=== PATIENT | female | born 1985 | race African-American/Black ===

== ENCOUNTER 2018-06-25 00:29 | Emergency (ER) | payer OTHER ==
[~2018-06-25] VITALS: Ht 175.3 cm; Wt 137.0 kg
[~2018-06-25 00:29] MED LIST: ACET325T53 PO
[2018-06-25 00:38] VITALS: BP_SYST 155
[2018-06-25] MEDS ORDERED: IPRATROPIUM/ALBUTEROL SULFATE 3 ML AMPUL.NEB (DUONEB) INH ONE (01:00)
[2018-06-25 01:20] LABS: HEMATOCRIT 35.4 % (36-48); HEMOGLOBIN 11.5 g/dL (12.0-16.0); RED BLOOD CELL COUNT(AUTO) 4.26 MIL/uL (4.2-6.2); WHITE BLOOD COUNT (AUTO) 5.9 K/uL (4.8-10.8)
[2018-06-25 01:21] LABS: BASOPHILS % (AUTO) 0.8 % (0.0-2.0); EOSINOPHILS # (AUTO) 0.2 K/uL (0.0-0.4); EOSINOPHILS % (AUTO) 3.5 % (0.0-4.0); LYMPHOCYTES # (AUTO) 2.2 K/uL (1.0-5.5); LYMPHOCYTES % (AUTO) 36.5 % (20.5-51.5); MEAN CORPUSCULAR HEMOGLOBIN 27 pg (27-31); MEAN CORPUSCULAR HGB CONC 32 % (32-36); MEAN CORPUSCULAR VOLUME 83 fL (79.0-98.0); MONOCYTES # (AUTO) 0.5 K/uL (0.0-1.0); MONOCYTES % (AUTO) 8.5 % (1.7-9.3); NEUTROPHILS % (AUTO) 50.7 % (40.0-70.0); PLATELET COUNT (AUTO) 283 K/uL (130-430); RED CELL DISTRIBUTION WIDTH 15.4 % (9.0-15.0)
[2018-06-25 01:28] LABS: CALCIUM 8.7 mg/dL (8.4-11.0); CREATININE 1.1 mg/dL (0.55-1.30); POTASSIUM 3.7 mmol/L (3.5-5.1)
[2018-06-25 01:35] LABS: ALBUMIN 3.7 g/dL (3.4-4.8); TOTAL BILIRUBIN 0.2 mg/dL (0.0-1.0)
[2018-06-25 02:41] VITALS: BP_SYST 135
== END 2018-06-25 02:41 | disposition home or self-care (01) ==
LOC: SED 00:29
DX: J20.9 Acute bronchitis, unspecified (principal); H92.01 Otalgia, right ear; I10 Essential (primary) hypertension; Z86.79 Personal history of other diseases of the circulatory system
CPT/HCPCS: 36415; 71045; 80053; 83880; 84484; 85025; 85379; 85610; 93005; 94640; 99284; J7620

== ENCOUNTER 2018-10-06 15:27 | Emergency (ER) | payer OTHER ==
[~2018-10-06] VITALS: Ht 175.3 cm; Wt 147.4 kg
[2018-10-06 15:50] VITALS: BP_SYST 153
[2018-10-06] MEDS ORDERED: KETOROLAC TROMETHAMINE 30 MG VIAL IM ONE (16:15)
[2018-10-06] MEDS ORDERED: KETOROLAC TROMETHAMINE 60 MG/2 ML VIAL IM ONE (16:15)
[2018-10-06 17:50] VITALS: BP_SYST 148
== END 2018-10-06 17:49 | disposition home or self-care (01) ==
LOC: SED 15:27
DX: M54.5 Low back pain (principal); I10 Essential (primary) hypertension; Z86.79 Personal history of other diseases of the circulatory system
CPT/HCPCS: 96372; 99283; J1885

== ENCOUNTER 2019-02-12 19:39 | Emergency (ER) | payer OTHER ==
[~2019-02-12] VITALS: Ht 175.3 cm; Wt 139.7 kg
[2019-02-12 19:45] VITALS: BP_SYST 130
--- NOTE | 2019-02-12 20:00 | NUR ---
Patient to ER bed 7 to gown for evaluation. Side rails up.
--- NOTE | 2019-02-12 20:03 | NUR ---
ER at bedside examining patient.
--- NOTE | 2019-02-12 20:10 | NUR ---
Pt came to the ED with SOB with cough. Reports that she was seen in the emergency room for cough for 3 days which has been going on for 5 days. Reported that she was taken for azithromycin, tytlenol and albuterol. Reports L side pain with cough. Reported she vomited once. Denies fever and nausea. No other complaints/injuries noted. Will cont. to monitor.
[2019-02-12] MEDS ORDERED: ONDANSETRON HCL 4 MG/2 ML VIAL IVP ONE (20:15)
[2019-02-12] MEDS ORDERED: NACL 0.9% 1,000 ML IV ONE (20:15)
[2019-02-12] MEDS ORDERED: ALBUTEROL SULFATE 0.083% 2.5 MG/3 ML VIAL.NEB INH ONE (20:15)
[2019-02-12] MEDS ORDERED: MORPHINE 2 MG/ML INJ. SYRINGE IVP ONE (20:15)
--- NOTE | 2019-02-12 20:20 | NUR ---
Girish caruso in ED - 02/12/19 at 2028 by [email or web address] COLTON Alan at bedside examining patient.
--- NOTE | 2019-02-12 21:00 | NUR ---
Pt resting comfortably in bed, no signs of acute distress. WIll cont. to monitor.
[2019-02-12 21:05] LABS: BASOPHILS # (AUTO) 0.1 K/uL (0.0-0.2); BASOPHILS % (AUTO) 0.8 % (0.0-2.0); EOSINOPHILS # (AUTO) 0.2 K/uL (0.0-0.4); EOSINOPHILS % (AUTO) 2.3 % (0.0-4.0); HEMATOCRIT 36.3 % (36-48); LYMPHOCYTES # (AUTO) 2.7 K/uL (1.0-5.5); LYMPHOCYTES % (AUTO) 37.5 % (20.5-51.5); MEAN CORPUSCULAR HEMOGLOBIN 27 pg (27-31); MEAN CORPUSCULAR HGB CONC 33 % (32-36); MEAN CORPUSCULAR VOLUME 82 fL (79.0-98.0); MONOCYTES # (AUTO) 0.5 K/uL (0.0-1.0); MONOCYTES % (AUTO) 7.5 % (1.7-9.3); NEUTROPHILS # (AUTO) 3.8 K/uL (1.8-7.7); NEUTROPHILS % (AUTO) 51.9 % (40.0-70.0); PLATELET COUNT (AUTO) 276 K/uL (130-430); RED BLOOD CELL COUNT(AUTO) 4.43 MIL/uL (4.2-6.2); RED CELL DISTRIBUTION WIDTH 15.1 % (9.0-15.0); WHITE BLOOD COUNT (AUTO) 7.3 K/uL (4.8-10.8)
[2019-02-12] MEDS ORDERED: ONDANSETRON HCL 4 MG/2 ML VIAL ONE (21:07)
[2019-02-12 21:24] LABS: POTASSIUM 3.4 mmol/L (3.5-5.1)
[2019-02-12 21:25] LABS: CREATININE 0.8 mg/dL (0.55-1.30)
[2019-02-12 21:37] LABS: ALBUMIN 4.1 g/dL (3.4-4.8); TOTAL BILIRUBIN 0.1 mg/dL (0.0-1.0)
--- NOTE | 2019-02-12 22:00 | NUR ---
Pt resting comfortably in bed, no signs of acute distress. WIll cont. to monitor.
[2019-02-12 22:10] LABS: CKMB RELATIVE INDEX 0.6 (0.0-2.9)
--- NOTE | 2019-02-12 23:00 | NUR ---
PT resting comfortably in bed, no signs of acute distress. Will cont. to monitor.
--- NOTE | 2019-02-12 23:10 | NUR ---
Note zuly in EDM - 02/13/19 at 0140 by [email or web address] Pt came to the ED with SOB with yolanda. Reports that she was seen in the emergency room for cough for 3 days which has been going on for 5 days. Reported that she was taken for azithromycin, tytlenol and albuterol. Reports L side pain with cough. Reported she vomited once. Denies fever and nausea. No other complaints/injuries noted. Will cont. to monitor.
--- NOTE | 2019-02-12 23:10 | NUR ---
Note zuly in EDM - 02/13/19 at 0718 by [email or web address] Pt came to the ED with SOB with cough. Reports that she was seen in the emergency room for cough for 3 days which has been going on for 5 days. Reported that she was taken for azithromycin, tytlenol and albuterol. Reports L side pain with cough. Reported she vomited once. Denies fever and nausea. No other complaints/injuries noted. Will cont. to monitor.
[2019-02-13 00:11] VITALS: BP_SYST 130
--- NOTE | 2019-02-13 00:11 | NUR ---
Patient given written and verbal discharge instructions and verbalizes understanding. ER MD Dr. Quintana discussed with patient the results and treatment provided. Patient in stable condition. ID arm band removed. IV catheter removed intact and dressing applied, no active bleeding. Rx of norco and zofran given. Patient educated on pain management and to follow up with PMD. Pain Scale 0/10. Opportunity for questions provided and answered. Medication side effect fact sheet provided.
== END 2019-02-13 00:11 | disposition home or self-care (01) ==
LOC: SED 19:39
DX: R06.02 Shortness of breath (principal); R05 Cough; R07.89 Other chest pain; R11.10 Vomiting, unspecified; I10 Essential (primary) hypertension; J40 Bronchitis, not specified as acute or chronic; Z79.899 Other long term (current) drug therapy
CPT/HCPCS: 36415; 71045; 80053; 82550; 82553; 83880; 84484; 84702; 85025; 85379; 86710; 93005; 94640; 96365; 96375; 99284; J1956; J2270; J2405; J7613

== ENCOUNTER 2019-03-08 23:33 | Emergency (ER) | payer OTHER ==
[~2019-03-08] VITALS: Ht 175.3 cm; Wt 140.6 kg
[2019-03-08 23:43] VITALS: BP_SYST 123
--- NOTE | 2019-03-08 23:45 | NUR ---
Patient triaged and placed in waiting room. VSS and patient appears in no acute distress at this time. Awaiting available bed, and MD notified of need for MSE.
--- NOTE | 2019-03-09 02:04 | NUR ---
Pt ambulatory to bed 3 with family for evaluation
--- NOTE | 2019-03-09 02:10 | NUR ---
Pt C/O of cough x 2 days. Denies any other symptoms at this time. Will continue to monitor.
--- NOTE | 2019-03-09 02:10 | NUR ---
Note rakeshone in EDM - 03/09/19 at 0240 by [email or web address] Pt C/O of cough and congestion x 2 days. Pt reports when she coughs she experiences wheezing. Pt denies fever, N/V/D, abdominal pain or any other symptoms. Will continue to monitor.
--- NOTE | 2019-03-09 02:40 | NUR ---
ER Dr. Yoder at bedside examining patient.
[2019-03-09] MEDS ORDERED: LevALBUTEROL HCL 1.25 MG/0.5 ML *CONC.* VIAL.NEB (XOPENEX CONC.) INH ONE (03:00)
[2019-03-09 04:28] VITALS: BP_SYST 128
--- NOTE | 2019-03-09 04:28 | NUR ---
Patient given written and verbal discharge instructions and verbalizes understanding. ER MD discussed with patient the results and treatment provided. Patient in stable condition. ID arm band removed. Rx of Flonase nasal spray given. Patient educated on pain management and to follow up with PMD. Pain Scale 0/10. Opportunity for questions provided and answered.
== END 2019-03-09 04:28 | disposition home or self-care (01) ==
LOC: SED 23:33
DX: R06.02 Shortness of breath (principal); J40 Bronchitis, not specified as acute or chronic; I10 Essential (primary) hypertension
CPT/HCPCS: 71045; 94640; 99283; J7612

== ENCOUNTER 2019-04-01 07:05 | Emergency (ER) | payer OTHER ==
[~2019-04-01] VITALS: Ht 175.3 cm; Wt 142.0 kg
[2019-04-01 07:05] VITALS: BP_SYST 138
[2019-04-01] MEDS ORDERED: KETOROLAC TROMETHAMINE 60 MG/2 ML VIAL IM ONE (08:00)
[2019-04-01] MEDS ORDERED: cefTRIAXone 1 GM in LIDOCAINE 1%, 20 ML MDV 2.1 ML IM ONE (08:00)
[2019-04-01 08:34] VITALS: BP_SYST 138
== END 2019-04-01 08:31 | disposition left against medical advice (07) ==
LOC: SED 07:05
DX: H92.02 Otalgia, left ear (principal); I10 Essential (primary) hypertension
CPT/HCPCS: 99283

== ENCOUNTER 2019-04-24 09:28 | Emergency (ER) | payer OTHER ==
[~2019-04-24] VITALS: Ht 175.3 cm; Wt 139.3 kg
[2019-04-24 09:40] VITALS: BP_SYST 164
--- NOTE | 2019-04-24 09:40 | NUR ---
Patient to ER bed 3 to gown for evaluation. Side rails up. Report given to ANGEL Arthur.
--- NOTE | 2019-04-24 09:42 | NUR ---
Patient arrived in the ED accompanied by her sister, c/o right-sided headache and pressure with nausea and vomiting that started yesterday - Taking Ibuprofen, no relief for patient. Patient denied any chest pain or shortness of breath. Denied any fevers or chills. Patient is alert and oriented x4, respirations even and unlabored, speaking in full sentences, and ambulating with a steady gait. VSS, pain level 10/10. Informed of the approximate wait time. Instructed to notify ED staff for any changes in condition or worsening of symptoms. Patient verbalized understanding.
--- NOTE | 2019-04-24 09:50 | NUR ---
Patient ambulated to the bathroom with a steady gait. Urine specimen collected and dropped off at the lab. Urine dip and preg done.
[2019-04-24] MEDS ORDERED: ONDANSETRON HCL 4 MG/2 ML VIAL IVP ONE (10:00)
[2019-04-24] MEDS ORDERED: DIPHENHYDRAMINE INJ 50 MG/ML VIAL IVP ONE (10:00)
--- NOTE | 2019-04-24 10:00 | NUR ---
ER Dr. Crandall at bedside examining patient.
--- NOTE | 2019-04-24 10:11 | NUR ---
ECG done at bedside as ordered by Dr. Crandall. Patient tolerated the procedure well. Report given to
--- NOTE | 2019-04-24 10:15 | NUR ---
# 20 gauge angiocath placed to RAC. Use of asceptic technique. Opsite placed over site. Blood return noted. Flushed with 10 cc of normal saline. No evidence of infiltration noted. Patient tolerated well.
--- NOTE | 2019-04-24 10:15 | NUR ---
Administered Benadryl and Zofran IVP as ordered by Dr. Crandall. Patient tolerated the medication well. See eMAR for details.
[2019-04-24 10:16] LABS: BILIRUBIN,URINE NEGATIVE (NEGATIVE); BLOOD, URINE NEGATIVE (NEGATIVE); CLARITY/URINE CLEAR (CLEAR); COLOR,URINE YELLOW (YELLOW); GLUCOSE,URINE NEGATIVE (NEGATIVE); KETONES,URINE NEGATIVE (NEGATIVE); LEUKOCYTE ESTERASE ,URINE TRACE (NEGATIVE); NITRITE, URINE NEGATIVE (NEGATIVE); PROTEIN URINE NEGATIVE (NEGATIVE); UROBILINOGEN,URINE 0.2 (0.2-1.0)
--- NOTE | 2019-04-24 10:24 | NUR ---
Patient is taken to CT via gurney, in stable condition.
[2019-04-24 10:25] LABS: BACTERIA,URINE FEW /HPF (None Seen); MUCUS,URINE 1+ /LPF (None Seen); RBC,URINE 0-3 /HPF (0-3)
[2019-04-24 10:34] LABS: BASOPHILS % (AUTO) 0.7 % (0.0-2.0); EOSINOPHILS # (AUTO) 0.1 K/uL (0.0-0.4); EOSINOPHILS % (AUTO) 1.1 % (0.0-4.0); HEMATOCRIT 34.6 % (36-48); HEMOGLOBIN 11.1 g/dL (12.0-16.0); LYMPHOCYTES # (AUTO) 1.5 K/uL (1.0-5.5); LYMPHOCYTES % (AUTO) 27.2 % (20.5-51.5); MEAN CORPUSCULAR HEMOGLOBIN 27 pg (27-31); MEAN CORPUSCULAR HGB CONC 32 % (32-36); MEAN CORPUSCULAR VOLUME 83 fL (79.0-98.0); MONOCYTES # (AUTO) 0.5 K/uL (0.0-1.0); MONOCYTES % (AUTO) 8.5 % (1.7-9.3); NEUTROPHILS # (AUTO) 3.4 K/uL (1.8-7.7); NEUTROPHILS % (AUTO) 62.5 % (40.0-70.0); PLATELET COUNT (AUTO) 275 K/uL (130-430); RED BLOOD CELL COUNT(AUTO) 4.19 MIL/uL (4.2-6.2); RED CELL DISTRIBUTION WIDTH 17.3 % (9.0-15.0); WHITE BLOOD COUNT (AUTO) 5.4 K/uL (4.8-10.8)
--- NOTE | 2019-04-24 10:35 | NUR ---
Patient is back from CT, in stable condition.
[2019-04-24 10:36] LABS: ANION GAP 8 (5-15); CALCIUM 8.6 mg/dL (8.4-11.0); CHLORIDE 105 mmol/L (98-107); GLUCOSE 91 mg/dL (70-99); POTASSIUM 3.3 mmol/L (3.5-5.1); SODIUM SERUM 143 mmol/L (136-145); UREA NITROGEN, BLOOD 14 mg/dL (8-21)
[2019-04-24 10:41] LABS: PROTHROMBIN TIME 10.5 SECS (9.5-12.5)
[2019-04-24 10:42] LABS: ALANINE AMINOTRANSFERASE 29 U/L (12-78); ALBUMIN 3.7 g/dL (3.4-4.8); ASPARTATE AMINOTRANSFERASE 12 U/L (10-37); TOTAL BILIRUBIN 0.5 mg/dL (0.0-1.0)
[2019-04-24 10:43] LABS: ALCOHOL, BLOOD < 3 mg/dL (<10); GFR AFRICAN AMERICAN 106 mL/min (>90)
--- NOTE | 2019-04-24 10:48 | NUR ---
Sister at bedside.
[2019-04-24] MEDS ORDERED: MORPHINE 4 MG/ML INJ. SYRINGE IVP ONE ×2 (11:15→12:30)
--- NOTE | 2019-04-24 11:23 | NUR ---
Administered Morphine Sulfate IVP as ordered by Dr. Crandall. Patient tolerated the medication well. See eMAR for details.
--- NOTE | 2019-04-24 12:35 | NUR ---
ER Dr. Crandall at bedside re-examining patient.
--- NOTE | 2019-04-24 12:40 | NUR ---
Patient refused Morphine Sulfate IVP. aware.
--- NOTE | 2019-04-24 12:50 | NUR ---
Discontinued peripheral IV as ordered by Dr. Crandall. Catheter intact. Patient tolerated the procedure well.
--- NOTE | 2019-04-24 12:53 | NUR ---
Patient given written and verbal discharge instructions and verbalizes understanding. ER MD discussed with patient the results and treatment provided. Patient in stable condition. ID arm band removed. IV catheter removed intact and dressing applied, no active bleeding. Rx of Bactrim, Naproxen, and Zofran given. Patient educated on pain management and to follow up with PMD. Pain Scale 0/10. Opportunity for questions provided and answered. Medication side effect fact sheet provided.
[2019-04-24 12:55] VITALS: BP_SYST 111
== END 2019-04-24 12:53 | disposition home or self-care (01) ==
LOC: SED 09:28
DX: G43.901 Migraine, unspecified, not intractable, with status migrainosus (principal); H92.01 Otalgia, right ear; J32.9 Chronic sinusitis, unspecified; E66.2 Morbid (severe) obesity with alveolar hypoventilation; I10 Essential (primary) hypertension; Z86.73 Personal history of transient ischemic attack (TIA), and cerebral infarction without residual deficits
CPT/HCPCS: 36415; 70450; 80053; 81000; 81003; 81025; 85025; 85610; 85730; 87086; 93005; 96374; 96375; 99284; G0482; J1200; J2270; J2405

== ENCOUNTER 2019-05-20 00:58 | Emergency (ER) | payer OTHER ==
[~2019-05-20] VITALS: Ht 175.3 cm; Wt 133.8 kg
[2019-05-20 01:18] VITALS: BP_SYST 161
--- NOTE | 2019-05-20 04:09 | NUR ---
Patient to ER bed 7 for evaluation. Side rails up.
--- NOTE | 2019-05-20 04:16 | NUR ---
Pt presents to ER with mother with c/o SOB. Pt A&Ox4. Pt states SOB began 2 days. Pt states sore throat with cough. Pt states pain is 3/10. Pt denies cough, fever, chills, nausea and vomiting. Upon assessment, breath sounds bilaterally clear with no use of accessory muscles. Pt oxygen saturation 100% on room air. Will continue to monitor.
--- NOTE | 2019-05-20 04:27 | NUR ---
ER Dr. Myrick at bedside examining patient.
--- NOTE | 2019-05-20 04:40 | NUR ---
RT at bedside.
[2019-05-20] MEDS ORDERED: IPRATROPIUM/ALBUTEROL SULFATE 3 ML AMPUL.NEB (DUONEB) INH ONE (04:45)
[2019-05-20] MEDS ORDERED: ACETAMINOPHEN 500 MG TABLET PO ONE (04:45)
--- NOTE | 2019-05-20 04:49 | NUR ---
Radiology at bedside
--- NOTE | 2019-05-20 05:06 | NUR ---
STREP SPECIMEN COLLECTED AND SENT TO LAB
--- NOTE | 2019-05-20 06:29 | NUR ---
ER Dr. SAUCEDA at bedside explaining results to pt.
[2019-05-20] MEDS ORDERED: cefTRIAXone 1 GM in LIDOCAINE 1%, 20 ML MDV 2.1 ML IM ONE (06:45)
--- NOTE | 2019-05-20 07:10 | NUR ---
PT MEDICATED PER MD ORDERS. PT TOLERATED WELL.
[2019-05-20 07:12] VITALS: BP_SYST 140
--- NOTE | 2019-05-20 07:12 | NUR ---
Patient given written and verbal discharge instructions and verbalizes understanding. ER MD Myrick discussed with patient the results and treatment provided. Patient in stable condition. ID arm band removed. Rx of [place], Cepacol Sore Throat, and Amoxicillin given. Patient educated on pain management and to follow up with PMD. Pain Scale 1/10. Opportunity for questions provided and answered. Medication side effect fact sheet provided.
[2019-05-20] MEDS ORDERED: AMOXICILLIN 500 MG CAPSULE PO ONE (07:15)
== END 2019-05-20 07:12 | disposition home or self-care (01) ==
LOC: SED 00:58
DX: J02.0 Streptococcal pharyngitis (principal); R51 Headache; J98.01 Acute bronchospasm; I10 Essential (primary) hypertension
CPT/HCPCS: 36415; 71045; 86403; 93005; 94640; 99285

== ENCOUNTER 2019-09-23 22:34 | Inpatient (IN) | payer OTHER, MEDICAID ==
[~2019-09-23] VITALS: Ht 175.3 cm; Wt 106.1 kg
[2019-09-23 23:05] VITALS: BP_SYST 117
[2019-09-23] MEDS ORDERED: MORPHINE 4 MG/ML INJ. SYRINGE IVP ONE (23:45)
[2019-09-23] MEDS ORDERED: ONDANSETRON HCL 4 MG/2 ML VIAL IVP ONE (23:45)
[2019-09-23 23:56] LABS: BILIRUBIN,URINE 1+ (NEGATIVE); BLOOD, URINE 3+ (NEGATIVE); CLARITY/URINE CLEAR (CLEAR); COLOR,URINE ORANGE (YELLOW); GLUCOSE,URINE NEGATIVE (NEGATIVE); KETONES,URINE 2+ (NEGATIVE); LEUKOCYTE ESTERASE ,URINE NEGATIVE (NEGATIVE); NITRITE, URINE NEGATIVE (NEGATIVE); PH,URINE 6.5 (5.0-8.0); PROTEIN URINE 1+ (NEGATIVE)
[2019-09-24] LABS: BACTERIA,URINE FEW /HPF (None Seen); RBC,URINE 50-80 /HPF (0-3); WBC,URINE 0-3 /HPF (0-3)
[2019-09-24 00:14] LABS: BASOPHILS % (AUTO) 0.3 % (0.0-2.0); EOSINOPHILS % (AUTO) 0.3 % (0.0-4.0); HEMATOCRIT 37.4 % (36-48); LYMPHOCYTES # (AUTO) 0.9 K/uL (1.0-5.5); LYMPHOCYTES % (AUTO) 16.1 % (20.5-51.5); MEAN CORPUSCULAR HEMOGLOBIN 27 pg (27-31); MEAN CORPUSCULAR HGB CONC 32 % (32-36); MEAN CORPUSCULAR VOLUME 85 fL (79.0-98.0); MONOCYTES # (AUTO) 0.5 K/uL (0.0-1.0); MONOCYTES % (AUTO) 9.3 % (1.7-9.3); NEUTROPHILS # (AUTO) 3.9 K/uL (1.8-7.7); PLATELET COUNT (AUTO) 159 K/uL (130-430); RED BLOOD CELL COUNT(AUTO) 4.38 MIL/uL (4.2-6.2); RED CELL DISTRIBUTION WIDTH 16.7 % (9.0-15.0); WHITE BLOOD COUNT (AUTO) 5.3 K/uL (4.8-10.8)
[2019-09-24 00:26] LABS: CALCIUM 8.7 mg/dL (8.4-11.0); CREATININE 1.09 mg/dL (0.55-1.30); POTASSIUM 3.2 mmol/L (3.5-5.1)
[2019-09-24 00:27] LABS: INR 1.1 (0.8-1.2)
[2019-09-24 00:30] LABS: ALBUMIN 3.5 g/dL (3.4-4.8); TOTAL BILIRUBIN 0.4 mg/dL (0.0-1.0)
[2019-09-24] MEDS ORDERED: KETOROLAC TROMETHAMINE 15 MG VIAL IVP ONE (00:30)
[2019-09-24] MEDS ORDERED: KETOROLAC TROMETHAMINE 15 MG VIAL ONE (00:37)
[2019-09-24] MEDS ORDERED: KETOROLAC TROMETHAMINE 15 MG VIAL IVP PRN (04:00)
[2019-09-24] MEDS ORDERED: ONDANSETRON HCL 4 MG/2 ML VIAL IVP PRN (04:00)
[2019-09-24] MEDS ORDERED: PANTOPRAZOLE SODIUM 40 MG/VIAL (PROTONIX) IVP ONE (04:00)
[2019-09-24 08:32] VITALS: BP_SYST 117
== END 2019-09-24 08:35 | disposition left against medical advice (07) | DRG 179 ==
LOC: SED 22:34 → SMU 09-24 03:50
PROVIDERS: ADMIT Internal Medicine; ATTEND Internal Medicine
DX: U07.1 COVID-19 (principal); Z53.29 Procedure and treatment not carried out because of patient's decision for other reasons; R19.7 Diarrhea, unspecified
CPT/HCPCS: 36415; 80053; 81000-TC; 82150-TC; 83690-TC; 85025; 85610-TC; C9113; J1885; J2270; J2405; U0003-CS